=== PATIENT | female | born 1995 | race Caucasian/White ===

== ENCOUNTER 2018-12-11 07:37 | Day surgery (SDC) | payer OTHER, MEDICAID ==
[~2018-12-11] VITALS: Ht 157.5 cm; Wt 53.5 kg
[~2018-12-11 07:37] MED LIST: PRILOSEC 20MG20 MG PO; ULTRAM 50MG TAB50 MG PO; ZOFRAN8 MG PO
[2018-12-11] MEDS ORDERED: MS CONTIN 330 MG/TAB PO (08:18)
[2018-12-11 08:32] VITALS: BP 128/95; PULSE 106; TEMP 97.3
[2018-12-11 10:37] VITALS: TEMP 98.4
[2018-12-11 10:45] VITALS: BP 114/74; PULSE 101
--- NOTE | 2018-12-11 10:45 | NUR ---
Patient returns to room 6 per cart and is awake and alert. Temp 98.1 and room air sats 96%. IV infusing via port a catheter. Denies pain or nausea. Dressing clean and dry on the right nephrostomy site. Mother in room. Given muffin and juice.
[2018-12-11 11:00] VITALS: BP 113/79; PULSE 97
--- NOTE | 2018-12-11 11:00 | NUR ---
Patient assisted up to the bathroom and tolerates activity well. IV converted to INT.
--- NOTE | 2018-12-11 11:05 | NUR ---
Patient dresses self and gait is steady.
[2018-12-11 11:15] VITALS: BP 122/86; PULSE 112
--- NOTE | 2018-12-11 11:15 | NUR ---
Dressing remains clean and dry covering the right nephrostomy tube site. Eating pancakes and drinking juice.
--- NOTE | 2018-12-11 11:30 | NUR ---
Port a catheter deaccessed and site covered with bandaid. Given dismissal instructions and instructed that Dr. Andrew's office will call next week with follow up appointment date and time. Instructed to resume normal medications and may take Tylenol for pain as needed.
--- NOTE | 2018-12-11 11:38 | NUR ---
Dismissal instructions signed and patient dismissed to home per private vehicle driven by mother. Taken to the front door per wheelchair and assisted into vehicle.
== END 2018-12-11 11:38 | disposition home or self-care (01) ==
LOC: SDCO 07:37
DX: N13.1 Hydronephrosis with ureteral stricture, not elsewhere classified (principal); C22.0 Liver cell carcinoma; C79.19 Secondary malignant neoplasm of other urinary organs; Z79.899 Other long term (current) drug therapy; F41.9 Anxiety disorder, unspecified; F32.9 Major depressive disorder, single episode, unspecified; F17.210 Nicotine dependence, cigarettes, uncomplicated
CPT/HCPCS: J0690; J1170; J1644; J2250; J2405; J2704; J3010; J7120; Q9967

== ENCOUNTER 2019-03-17 18:35 | Emergency (ER) | payer OTHER, MEDICAID ==
[~2019-03-17] VITALS: Ht 157.5 cm; Wt 54.8 kg
[~2019-03-17 18:35] MED LIST changes: +MS CONTIN 330 MG/TAB PO
[2019-03-17 18:44] VITALS: TEMP 98.4
[2019-03-17] MEDS ORDERED: ATIVAN 1MG T1 MG/TAB PO (19:05)
[2019-03-17] MEDS ORDERED: REMERON 15M15 MG/TA1 PO (19:06)
[2019-03-17] MEDS ORDERED: DECADRON 1MG TAB1 MG PO (19:07)
[2019-03-17] MEDS ORDERED: TRANSDERM-0.5 MG/21 TOP (19:07)
[2019-03-17] MEDS ORDERED: FENTANYL 100MCG TOP (19:08)
[2019-03-17] MEDS ORDERED: DILAUDID8 M1 PO (19:09)
[2019-03-17] MEDS ORDERED: COMPAZINE 110 MG/TAB PO (19:09)
[2019-03-17] MEDS ORDERED: WOMEN'S LAXATIVE5 MG PO (19:10)
[2019-03-17] MEDS ORDERED: MAALOX ADVANCE148 ML (19:10)
[2019-03-17] MEDS ORDERED: ENULOSE10 GM/151 PO (19:11)
[2019-03-17] MEDS ORDERED: MIRALAX PA17 GM/Dose PO (19:12)
[2019-03-17] MEDS ORDERED: MAGCITRATE PO (19:12)
[2019-03-17] MEDS ORDERED: SORBITOL PO (19:13)
[2019-03-17] MEDS ORDERED: FLOMAX 0.40.4 MG/CAP PO (19:14)
[2019-03-17] MEDS ORDERED: DESYREL 50MG50 MG PO (19:14)
[2019-03-17] MEDS ORDERED: DITROPAN 5MG TAB5 MG PO (19:15)
[2019-03-17] MEDS ORDERED: SENNA-S 50 MG-81 TAB PO (19:15)
[2019-03-17] MEDS ORDERED: MACRODANTIN100 PO (19:34)
[2019-03-17 19:40] LABS: BASO % 0.5 % (0.0-2.0); EOS # 0.1 (0.0-0.7); EOS % 0.9 % (0-4.0); GRAN # 4.5 (1.4-6.5); GRAN % 53.4 % (42.2-75.2); LYMPH # 2.6 (1.2-3.4); LYMPH % 30.5 % (20.0-51.0); MEAN CELL VOLUME 80 fl (80.0-100.0); MEAN CORPUSCULAR HGB CONC 29 g/dl (33.0-37.0); MEAN PLATELET VOLUME 8.8 fl (7.4-10.4); MONO % 12.1 % (1.7-9.3); PLATELET COUNT 352 K/mm3 (130-400); RED BLOOD COUNT 4.03 M/mm3 (4.10-5.30); REDCELL DISTRIBUTION WIDTH-CV 20.4 % (11.5-14.5)
[2019-03-17 19:47] LABS: HEMATOCRIT 32.3 % (37.0-47.0); HEMOGLOBIN 9.4 g/dl (12.5-16.0); MEAN CORPUSCULAR HEMOGLOBIN 23 pg (27.0-31.0)
[2019-03-17 19:49] LABS: ALBUMIN 3.6 gm/dL (3.5-5.0); BILIRUBIN,TOTAL 4.8 mg/dL (0.0-1.0); C-REACTIVE PROTEIN 2.6 mg/dL (0.0-0.9); CALCIUM 9.7 mg/dL (8.4-10.2); CREATININE, serum 0.57 (0.52-1.25); MAGNESIUM 1.8 mg/dL (1.6-2.3); POTASSIUM 3.6 mmol/L (3.4-5.0); TOTAL PROTEIN 8.2 gm/dL (6.4-8.2)
[2019-03-17 20:36] LABS: INR 1.2 (0.8-3.0); PROTHROMBIN TIME 14.4 SECONDS (9.7-12.8)
[2019-03-17 20:38] LABS: PARTIAL THROMBOPLASTIN TIME 28.4 SECONDS (26.0-37.0)
[2019-03-17 20:40] LABS: COLLECTION METHOD CLEAN CATCH
[2019-03-17 20:52] LABS: MUCOUS Present /lpf; PH 7 (5-8); SQUAMOUS EPITHELIAL 0-2 /hpf; URINE APPEARANCE Hazy; URINE BACTERIA None Seen /hpf; URINE BILIRUBIN Positive (NEGATIVE); URINE BLOOD 3+ (NEGATIVE); URINE COLOR Amber; URINE GLUCOSE Negative (NEGATIVE); URINE KETONE Negative (NEGATIVE); URINE LEUKOCYTE ESTERASE 2+ (NEGATIVE); URINE NITRATE Negative (NEGATIVE); URINE PROTEIN(semi-quant) 2+ (NEGATIVE); URINE RBC >50 /hpf; URINE UROBILINOGEN >=4.0 mg/dL (NEGATIVE)
[2019-03-17 22:30] VITALS: BP 124/72; PULSE 104
== END 2019-03-17 22:55 | disposition short-term general hospital (02) ==
LOC: COL.ER 18:35
PROVIDERS: Emergency Medicine
DX: C22.0 Liver cell carcinoma (principal); C79.9 Secondary malignant neoplasm of unspecified site
CPT/HCPCS: A4216; J0696; J1170; J2405; J2543; J7030; Q9967

== ENCOUNTER 2019-04-09 13:23 | Inpatient (IN) | payer OTHER, MEDICAID ==
[~2019-04-09] VITALS: Ht 157.5 cm; Wt 54.2 kg
[~2019-04-09 13:23] MED LIST changes: +ATIVAN 1MG T1 MG/TAB PO; +COMPAZINE 110 MG/TAB PO; +DECADRON 1MG TAB1 MG PO; +DESYREL 50MG50 MG PO; +DILAUDID8 M1 PO; +DITROPAN 5MG TAB5 MG PO; +ENULOSE10 GM/151 PO; +FENTANYL 100MCG TOP; +FLOMAX 0.40.4 MG/CAP PO; +MAALOX ADVANCE148 ML; +MACRODANTIN100 PO; +MAGCITRATE PO; +MIRALAX PA17 GM/Dose PO; +REMERON 15M15 MG/TA1 PO; +SENNA-S 50 MG-81 TAB PO; +SORBITOL PO; +TRANSDERM-0.5 MG/21 TOP; +WOMEN'S LAXATIVE5 MG PO
[2019-04-09 14:15] LABS: MEAN CELL VOLUME 80 fl (80.0-100.0); MEAN CORPUSCULAR HGB CONC 28 g/dl (33.0-37.0); MEAN PLATELET VOLUME 8.4 fl (7.4-10.4); PLATELET COUNT 427 K/mm3 (130-400); RED BLOOD COUNT 3.61 M/mm3 (4.10-5.30); REDCELL DISTRIBUTION WIDTH-CV 18.5 % (11.5-14.5)
[2019-04-09 14:19] LABS: HEMATOCRIT 28.9 % (37.0-47.0); HEMOGLOBIN 8.2 g/dl (12.5-16.0); MEAN CORPUSCULAR HEMOGLOBIN 23 pg (27.0-31.0)
[2019-04-09 14:22] LABS: INR 1.3 (0.8-3.0); PROTHROMBIN TIME 15.8 SECONDS (9.7-12.8)
[2019-04-09 14:33] LABS: ALBUMIN 3.3 gm/dL (3.5-5.0); BILIRUBIN,TOTAL 0.5 mg/dL (0.0-1.0); C-REACTIVE PROTEIN 3.3 mg/dL (0.0-0.9); CALCIUM 9.6 mg/dL (8.4-10.2); CREATININE, serum 0.48 (0.52-1.25); POTASSIUM 3.5 mmol/L (3.4-5.0); TOTAL PROTEIN 7.5 gm/dL (6.4-8.2)
[2019-04-09 15:51] LABS: COLLECTION METHOD CLEAN CATCH
[2019-04-09 16:08] LABS: MICROCYTOSIS 1+; NEUTROPHILS 73 % (42.0-75.2)
[2019-04-09 16:09] LABS: LYMPHOCYTE 22 % (20.0-51.0); PLATELET ESTIMATE INCREASED (NORMAL)
[2019-04-09 16:10] LABS: ANISOCYTOSIS 2+; HYPOCHROMIA 2+
[2019-04-09 16:32] LABS: MUCOUS Present /lpf; PH 7 (5-8); SQUAMOUS EPITHELIAL None Seen /hpf; URINE APPEARANCE Cloudy; URINE BACTERIA Moderate /hpf; URINE BILIRUBIN Negative (NEGATIVE); URINE BLOOD 1+ (NEGATIVE); URINE COLOR Yellow; URINE GLUCOSE Negative (NEGATIVE); URINE KETONE Negative (NEGATIVE); URINE LEUKOCYTE ESTERASE 3+ (NEGATIVE); URINE NITRATE Negative (NEGATIVE); URINE PROTEIN(semi-quant) 1+ (NEGATIVE); URINE RBC 20-50 /hpf; URINE UROBILINOGEN >=4.0 mg/dL (NEGATIVE)
--- NOTE | 2019-04-09 18:45 | NUR ---
Patient up to room 314, escorted via wheelchair, mom at bedside. Oriented to room. Denies needs at this time. Requesting pain medication. it is shift change. production shift supervisor nurse will be setting up RESERVE OFFICER. Call light within reach. Mom left for the evening.
--- NOTE | 2019-04-09 19:35 | NUR ---
Report given to TLYOR Rose., will be resuming cares.
[2019-04-09] MEDS ORDERED: ZOFRAN8 MG PO (23:05)
[2019-04-09] MEDS ORDERED: LEVSIN0.125 M1 PO (23:12)
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
[2019-04-09 23:50] VITALS: BP 127/89; PULSE 133; TEMP 102.6
[2019-04-09 23:54] VITALS: BP 127/89; PULSE 138; PULSE 18; TEMP 102.6
[2019-04-10] VITALS (9 sets, daily range): BP systolic 101–152; BP diastolic 64–96; PULSE 93–130; TEMP 98–99.8
[2019-04-10 01:56] LABS: MEAN CELL VOLUME 80 fl (80.0-100.0); MEAN CORPUSCULAR HGB CONC 28 g/dl (33.0-37.0); MEAN PLATELET VOLUME 8.5 fl (7.4-10.4); PLATELET COUNT 345 K/mm3 (130-400); RED BLOOD COUNT 3.31 M/mm3 (4.10-5.30); REDCELL DISTRIBUTION WIDTH-CV 18.7 % (11.5-14.5)
[2019-04-10 01:58] LABS: HEMATOCRIT 26.5 % (37.0-47.0); HEMOGLOBIN 7.5 g/dl (12.5-16.0); MEAN CORPUSCULAR HEMOGLOBIN 23 pg (27.0-31.0)
[2019-04-10 02:01] LABS: INR 1.5 (0.8-3.0); PROTHROMBIN TIME 18.2 SECONDS (9.7-12.8)
[2019-04-10 02:09] LABS: ALBUMIN 2.7 gm/dL (3.5-5.0); BILIRUBIN,TOTAL 0.7 mg/dL (0.0-1.0); CALCIUM 8.2 mg/dL (8.4-10.2); CREATININE, serum 0.59 (0.52-1.25); MAGNESIUM 1.4 mg/dL (1.6-2.3); POTASSIUM 3.1 mmol/L (3.4-5.0); TOTAL PROTEIN 6.1 gm/dL (6.4-8.2)
[2019-04-10 02:19] LABS: ANISOCYTOSIS 1+; BAND 11 % (0-10); EOSINOPHIL 1 % (0-4); LYMPHOCYTE 12 % (20.0-51.0); NEUTROPHILS 72 % (42.0-75.2); PLATELET ESTIMATE NORMAL (NORMAL)
[2019-04-10 02:20] LABS: HYPOCHROMIA 2+
[2019-04-10 02:22] LABS: POLYCHROMASIA 1+
[2019-04-10 02:23] LABS: SCHISTOCYTES 1+
--- NOTE | 2019-04-10 03:00 | NUR ---
AT 2350 PT'S TEMP WAS 102.6 AND HEART RATE UP IN THE 140'S. CALLED CATA VAZQUEZ SEVERAL TIMES IN REFERENCE TO PT'S TEMP AND HEART RATE. WHEN PT GETS UP TO GO TO THE BATHROOM, PT'S HEART RATE GOES UP INTO THE 160S. ALSO, CATA VAZQUEZ CAME IN TO SEE PT AFTER PT'S HEART RATE WAS IN THE 160s. RECEIVED ORDERS FOR MOTRIN 400MG PO FOR TEMP, AND BOLUS OF 1L OF NORMAL SALINE. ALSO, CATA AVZQUEZ ORDER TO HAVE LABS COME UP AND DO 0500 LABS NOW. LAB CAME UP RIGHT AWAY. PT GOT UP BY HERSELF WITHOUT ASKING FOR HELP AND HER HEART RATE WENT BACK INTO THE 160s AGAIN, CALL CATA VAZQUEZ AND SHE ADVISED THAT THE PT USING THE BEDSIDE COMMODE. ADVISED CATA VAZQUEZ ALREADY PUT BEDSIDE COMMODE NEXT TO BED AND ADVISED PT TO CALL BEFORE GETTING UP AND TO USE THE BEDSIDE COMMODE. PT STATED, "OKAY." ALSO, ASKED PT ABOUT PAIN. PT HAS NOT HAD MUCH IMPROVEMENT WITH PAIN. PAIN IS ABOUT 5/10. OFFERED TO GIVE HER A BOLUS OF THE DILUADID; AND PT DECLINED. ONCE PT LAYING DOWN RESTING HR BACK DOWN TO 119. PT HAS NO NEEDS AT THIS TIME, CALL LIGHT WITHIN REACH.
--- NOTE | 2019-04-10 04:25 | NUR ---
PT GOT BACK UP TO USE THE BEDSIDE COMMODE AND PT'S HEART RATE WENT IN THE 140s. ASSISTED PT BACK TO BED AND DID A SET OF VITAL SIGNS AND PT'S HEART RATE WENT DOWN TO 108. CALLED CATA VAZQUEZ AND ADVISED HER WHAT HAPPENED. NO NEW ORDERS. PT RESTING IN BED WITH CALL LIGHT WITHIN REACH AND DIGITAL MARKETING LEAD BUTTON IN REACH. NO NEEDS AT THIS TIME.
--- NOTE | 2019-04-10 07:30 | NUR ---
PT HAS BEEN RESTING/SLEEPING IN BED WITH NO S/S OF PAIN OR DISCOMFORT NOTED. RESP EVEN AND UNLABORED. PT USED LIGHT OIL OPERATOR PUMP 7X SINCE 2232 TO 634 AND 2MG OF DILUADID. PT'S HEART HAS BEEN IN LOWER 100S SINCE NOT GETTING UP AND SLEEPING/RESTING. CALL LIGHT WITHIN REACH.
--- NOTE | 2019-04-10 09:07 | NUR ---
SW attempted to meet with the pt; the pt was deeply sleeping. SW will attempt at a later time.
--- NOTE | 2019-04-10 13:45 | NUR ---
Patient has rested in bed with eyes closed most of morning. Did become nauseated over the past hour and a half. Was administered available PRN medications without relief. Did speak with hospitalist and after reviewing available medicaitons he stated that was all that could be given to patient at this time. This was explained to patient, she did lay on side with eyes closed. Currently some nausea relief has been noticed if patient is still.
--- NOTE | 2019-04-10 13:59 | NUR ---
Chaaplain offered to pray but nothing needed at this time.
--- NOTE | 2019-04-10 14:17 | NUR ---
AGUSTIN met with the patient to discuss a discharge plan. The pt lives in [place] with her parents. The pt does not have any DME and reports independence with ADLs. The pt's PCP is Dr. Hicks and the receives her medications from [facility] in [place]. The pt reports no difficulties obtaining her medications. The pt does not have advanced directives in the EMR and was not interested in obtaining a DPOA-HC form. The pt plans to return home upon discharge. There are no additional needs at this time.
--- NOTE | 2019-04-10 17:57 | NUR ---
Patient is resting in bed with eyes closed on left side. Opens eyes to voice. Call light and personal items are within reach.
--- NOTE | 2019-04-10 18:53 | NUR ---
Patient declined lovenox injection today stating she pefers not to receive them and they are uncomfortable.
--- NOTE | 2019-04-10 20:00 | NUR ---
PT HAS N/V AND RESTING IN BED. GAVE ATIVAN TO HELP WITH ANXIETY. CALL LIGHT WITHIN REACH.
--- NOTE | 2019-04-10 22:22 | NUR ---
PT HAS N/V. PT DID GET UP TO USE THE BEDSIDE COMMODE AND HEART RATE ELEVATED AND THEN SHE STARTED TO VOMIT. PT WAS GIVEN AN ATIVAN AND IT SEEMED ONLY TO HELP FOR A SHORT TIME. PT'S TEMP WAS 99.8, GAVE MOTRINE FOR PAIN AND TEMP. PT RESTING IN BED AT THIS TIME, WITH HOB ELEVATED TO 15 DEGREE ANGLE. CALL LIGHT WITHIN REACH.
--- NOTE | 2019-04-10 22:30 | NUR ---
CALLED LOLLY VAZQUEZ IN REFERENCE TO PT'S NAUSEA AND VOMITING AND ALSO PT'S REQUEST NOT TO HAVE THE HELP DESK COORDINATOR PUMP, BUT TO JUST HAVE IV PAIN MEDICATIONS FOR HER PAIN. PT DOES NOT LIKE THAT SHE HAS TO WEAR THE NASAL CANULA FOR THE HELP DESK COORDINATOR PUMP. LOLLY VAZQUEZ DISCONTINUED THE HELP DESK COORDINATOR PUMP AND PUT IN AN ORDER FOR DILAUDID FOR PAIN AND PHENERGAN 12.5 MG IV FOR NAUSEA AND VOMITING.
[2019-04-11] VITALS (7 sets, daily range): BP systolic 115–142; BP diastolic 82–97; PULSE 90–107; TEMP 98.4–99.5
--- NOTE | 2019-04-11 02:19 | NUR ---
PT HAS NOT HAD ANY VOMITING SINCE GIVEN PHENERGAN. PT HAS BEEN RESTING SLEEPING AND ONLY ASKED FOR PAIN MEDICATION ONCE SINCE OFF GRAVEL WEIGHER PUMP. PT'S RESP EVEN AND UNLABORED AND NO S/S OF PAIN OR DISCOMFORT NOTED. CALL LIGHT WITHIN REACH.
--- NOTE | 2019-04-11 03:18 | NUR ---
PT HAD C/O POTASSIUM BURNING, TURNED OFF IV PUMP RIGHT AWAY AND JUST PUT ON THE NORMAL SALINE. PT STILL FELT IT BURNING, CHANGED TUBING AND FLUSHED. PT STATED THAT IT FELT BETTER. PT DID NOT WANT IV POTASSIUM BECAUSE IT WAS HURTING HER. PT REQUEST TO TAKE PO POTASSIUM INSTEAD. CALLED LOLLY VAZQUEZ AND ADVISED WHAT PT'S REQUEST WAS AND WHY. LOLLY VAZQUEZ ADVISED TO STOP POTASSIUM AND WAIT FOR MORNING LABS TO SEE WHERE HER POTASSIUM LEVELS. PT RESTING AT THIS TIME. CALL LIGHT WITHIN REACH.
[2019-04-11 06:16] LABS: BASO % 0.3 % (0.0-2.0); EOS # 0.3 (0.0-0.7); EOS % 3.4 % (0-4.0); GRAN % 62.6 % (42.2-75.2); LYMPH # 1.9 (1.2-3.4); LYMPH % 19.6 % (20.0-51.0); MEAN CELL VOLUME 79 fl (80.0-100.0); MEAN CORPUSCULAR HGB CONC 29 g/dl (33.0-37.0); MONO # 1.2 (0.1-0.6); PLATELET COUNT 395 K/mm3 (130-400); RED BLOOD COUNT 3.15 M/mm3 (4.10-5.30); REDCELL DISTRIBUTION WIDTH-CV 18.7 % (11.5-14.5)
--- NOTE | 2019-04-11 06:18 | NUR ---
PT HAS BEEN RESTING/SLEEPING IN BED. PT HAS NO S/S OF PAIN OR DISCOMFORT AND CALL LIGHT WITHIN REACH.
[2019-04-11 06:22] LABS: HEMATOCRIT 24.8 % (37.0-47.0); HEMOGLOBIN 7.2 g/dl (12.5-16.0); MEAN CORPUSCULAR HEMOGLOBIN 23 pg (27.0-31.0)
[2019-04-11 06:32] LABS: CALCIUM 8.7 mg/dL (8.4-10.2); CREATININE, serum 0.5 (0.52-1.25); MAGNESIUM 1.8 mg/dL (1.6-2.3); PHOSPHOROUS 3.4 mg/dL (2.5-4.5); POTASSIUM 3.8 mmol/L (3.4-5.0)
--- NOTE | 2019-04-11 06:58 | NUR ---
SHOP HELPER PUMP USAGE SHOWED 23.5 MG USED.
--- NOTE | 2019-04-11 10:00 | NUR ---
THIS NURSE TOOK IN MORNING MEDS TO PATIENT. PT DIDNT TAKE AM MEDS, THIS NURSE LEFT THEM FOR PT, INSTRUCTED THAT THERE WAS NAUSEA MEDICATION IN THERE, THIS NURSE WILL CHECK BACK WITH PT AND IF PT DOESNT TAKE MEDS WILL DOCUMENT AGAINST THEM. PT HAD BEEN UP WALKING WITH PT THIS AM. DIETITION WAS IN TO SEE PATIENT THIS AM AFTER PT, PT REFUSED DIETITION TO DO ASSESMENT, WOKE UP AND STATED NO TO ANY QUESTION SHE ASKED PT. PT STATED NO TO GETTING ANY DIETARY SUPPLEMENTS. PT LAYING IN BED WITH EYES CLOSED.
--- NOTE | 2019-04-11 12:51 | NUR ---
PT DID TAKE AM MEDS AT THIS TIME.
--- NOTE | 2019-04-11 15:45 | NUR ---
PT HAS C/O "CHEST PAIN" THIS NURSE TOOK PT VITAL SIGNS AND DOCUMENTED, WNL. THIS NURSE HAD PT POINT TO AREA OF PAIN, AND DESCRIBE PAIN, IF IT RADIATES OR NOT. PT POINTED TO UPPER GASTRIC REGION, STATED IT FELT LIKE A SHARP PAIN THAT DOESN'T RADIATE, DOESNT COME AND GO EITHER, IS A CONSTANT PAIN. THIS NURSE ADMINISTERED IV ZOFRAN AND AN PO ATIVAN. PT HAD C/O SAME PAIN STILL THERE 15 MINS AFTER ZOFRAN AND ASKED FOR ANYTHING ELSE. THIS NURSE GOT A VERBAL ORDER FROM DR. TERRY TO GIVE 30ML MAALOX TO SEE IF THAT RELIEVES PAIN. WILL CONTINUE TO MONITOR PT.
--- NOTE | 2019-04-11 20:10 | NUR ---
Pt is resting with HOB elevated. Pt is very soft spoken with flat affect. Pt reports abdominal pain 6/10. Pt is also experiencing nausea and vomiting that increases her pain. Abdomen soft, rounded. BS+. Respirations even and unlabored. Lungs clear. No distress noted. Telemetry leads replaced and adjusted. Pt is SR/ST. Heart rhythm is regular. HR does increase with exertion/ambulation. Pt reports increased weakness since admission. Pt denies any needs except pain and nausea medication. Will continue to monitor.
--- NOTE | 2019-04-11 20:48 | NUR ---
Telemetry called due to patients HR being elevated up to 140. Pt is up to BSC. Once returned to bed HR decreases into normal limits. PRN pain medication given for sharp abdominal pain 04/05. PRN nausea medication also given. No further needs noted.
--- NOTE | 2019-04-11 23:10 | NUR ---
Telemetry called d/t patients HR being elevated. Pt is in bed but awake upon assessment. No distress noted and HR is normalized. Will continue to monitor.
[2019-04-12 00:33] VITALS: BP 112/78; PULSE 100; TEMP 98.3
--- NOTE | 2019-04-12 03:15 | NUR ---
Pt sleeping. No distress noted. Heart rate and rhythm are WNL. Will continue to monitor.
[2019-04-12 04:22] VITALS: BP 125/92; PULSE 103; TEMP 98.6
--- NOTE | 2019-04-12 05:30 | NUR ---
Pt sleeping this AM. No acute distress noted. Pt has slept a majority of the city wellness coordinator without complaint. No needs noted.
[2019-04-12 07:32] LABS: MEAN CELL VOLUME 79 fl (80.0-100.0); MEAN CORPUSCULAR HGB CONC 28 g/dl (33.0-37.0); MEAN PLATELET VOLUME 8.6 fl (7.4-10.4); PLATELET COUNT 349 K/mm3 (130-400); RED BLOOD COUNT 3.48 M/mm3 (4.10-5.30); REDCELL DISTRIBUTION WIDTH-CV 18.5 % (11.5-14.5)
[2019-04-12 07:35] LABS: HEMATOCRIT 27.6 % (37.0-47.0); HEMOGLOBIN 7.8 g/dl (12.5-16.0); MEAN CORPUSCULAR HEMOGLOBIN 22 pg (27.0-31.0)
[2019-04-12 07:44] LABS: CALCIUM 8.7 mg/dL (8.4-10.2); CREATININE, serum 0.53 (0.52-1.25); MAGNESIUM 1.7 mg/dL (1.6-2.3); PHOSPHOROUS 3.3 mg/dL (2.5-4.5); POTASSIUM 3.5 mmol/L (3.4-5.0)
[2019-04-12 08:04] VITALS: BP 116/78; PULSE 102; TEMP 98.3
[2019-04-12 09:08] LABS: BAND 6 % (0-10); EOSINOPHIL 3 % (0-4); LYMPHOCYTE 24 % (20.0-51.0); NEUTROPHILS 57 % (42.0-75.2)
[2019-04-12 09:09] LABS: HYPOCHROMIA 2+; PLATELET ESTIMATE NORMAL (NORMAL)
[2019-04-12 09:10] LABS: ANISOCYTOSIS 1+; MICROCYTOSIS 1+
[2019-04-12] MEDS ORDERED: DIFLUCAN 100MG100 MG PO (10:34)
--- NOTE | 2019-04-12 11:36 | NUR ---
SW attended clincal rounds. Patient will discharge home with her mother today.
--- NOTE | 2019-04-12 11:43 | NUR ---
Assessment completed, alert/oriented, vital signs stable, reports pain/ Nausea have improved, some yeast in UA/ started Diflucan, plans for home now that she is feeling a little better, she is agreeable with plan, denies needs
--- NOTE | 2019-04-12 14:04 | NUR ---
Initial visit; Patient appeared not interested in Spiritual Care but did tell Schedule Supervisor she is going home today and faintly smiled when Schedule Supervisor commented on her xochitl name. Schedule Supervisor reiterated that she is available to listen.
--- NOTE | 2019-04-12 14:27 | NUR ---
discharge instructions reviewed with the patient, instructed to follow up with PCP as we have scheduled, instructed to finish course of Diflucan for yeast infection, IV removed, she is leaving with her family, I will escort her out the door
--- NOTE | 2019-04-12 14:47 | NUR ---
Palliative care nurse met with the patient in room and spoke with her mother by phone. Mother was very open to suggestion of home health PT/OT but pt was equally resistant. Pt is very clear that she wants to go home. She really does not identify any clear goals beside going home. She denies needs. She does report being involved withi palliative care at [facility]. While support was offered, pt really showed little interest in any suggestions other than going home.
== END 2019-04-12 14:31 | disposition home or self-care (01) | DRG 872 ==
LOC: COL.ER 13:23 → MEDICAL 16:51
PROVIDERS: Hospitalist; Internal Medicine; Physician Assistant; ADMIT Family Medicine
DX: A41.9 Sepsis, unspecified organism (principal); N39.0 Urinary tract infection, site not specified; C22.0 Liver cell carcinoma; E46 Unspecified protein-calorie malnutrition; C78.6 Secondary malignant neoplasm of retroperitoneum and peritoneum; C77.2 Secondary and unspecified malignant neoplasm of intra-abdominal lymph nodes; G89.3 Neoplasm related pain (acute) (chronic); R53.81 Other malaise; R11.2 Nausea with vomiting, unspecified
CPT/HCPCS: OP; 99222-AI; 99232-AI; 99239; J1170; J1650; J2405; J2543; J2550; J3475; J3480; J7030; J8540; Q9967

== ENCOUNTER 2019-04-28 11:20 | Emergency (ER) | payer OTHER, MEDICAID ==
[~2019-04-28] VITALS: Ht 160 cm; Wt 49.5 kg
[~2019-04-28 11:20] MED LIST changes: +DIFLUCAN 100MG100 MG PO; +LEVSIN0.125 M1 PO
[2019-04-28 11:46] VITALS: TEMP 97.4
[2019-04-28 12:53] LABS: HEMATOCRIT 40.7 % (37.0-47.0); HEMOGLOBIN 12.4 g/dl (12.5-16.0); MEAN CELL VOLUME 78 fl (80.0-100.0); MEAN CORPUSCULAR HEMOGLOBIN 24 pg (27.0-31.0); MEAN CORPUSCULAR HGB CONC 31 g/dl (33.0-37.0); MEAN PLATELET VOLUME 8.6 fl (7.4-10.4); PLATELET COUNT 337 K/mm3 (130-400); RED BLOOD COUNT 5.21 M/mm3 (4.10-5.30); REDCELL DISTRIBUTION WIDTH-CV 19.2 % (11.5-14.5)
[2019-04-28 13:03] LABS: ALBUMIN 2.7 gm/dL (3.5-5.0); BILIRUBIN,TOTAL 0.7 mg/dL (0.0-1.0); CALCIUM 8.9 mg/dL (8.4-10.2); CREATININE, serum 0.48 (0.52-1.25)
[2019-04-28 13:04] LABS: POTASSIUM 2.8 mmol/L (3.4-5.0)
[2019-04-28 13:11] LABS: INR 1.8 (0.8-3.0); PROTHROMBIN TIME 21.9 SECONDS (9.7-12.8)
[2019-04-28 13:14] LABS: C-REACTIVE PROTEIN 21.4 mg/dL (0.0-0.9)
[2019-04-28 13:17] LABS: ANISOCYTOSIS 1+; BAND 16 % (0-10); HYPOCHROMIA 1+; LYMPHOCYTE 1 % (20.0-51.0); MICROCYTOSIS 1+; NEUTROPHILS 79 % (42.0-75.2); PLATELET ESTIMATE NORMAL (NORMAL)
--- NOTE | 2019-04-28 15:15 | NUR ---
Patient's primary care nurse informed of PICC placement and may utilize catheter for IV medications. Packet of information will be set with patient to [facility]. Bedside information sent with patient.
[2019-04-28 15:59] LABS: COLLECTION METHOD CLEAN CATCH
[2019-04-28 16:22] LABS: MUCOUS Present /lpf; PH 5 (5-8); SQUAMOUS EPITHELIAL None Seen /hpf; URINE APPEARANCE Hazy; URINE BACTERIA None Seen /hpf; URINE BILIRUBIN Negative (NEGATIVE); URINE BLOOD 2+ (NEGATIVE); URINE COLOR Yellow; URINE GLUCOSE Negative (NEGATIVE); URINE KETONE 1+ (NEGATIVE); URINE LEUKOCYTE ESTERASE 3+ (NEGATIVE); URINE NITRATE Negative (NEGATIVE); URINE PROTEIN(semi-quant) 1+ (NEGATIVE); URINE RBC 20-50 /hpf
[2019-04-28 16:45] VITALS: BP 116/76; PULSE 147
== END 2019-04-28 16:50 | disposition short-term general hospital (02) ==
LOC: COL.ER 11:20
PROVIDERS: Emergency Medicine
DX: A41.9 Sepsis, unspecified organism (principal); A04.72 Enterocolitis due to Clostridium difficile, not specified as recurrent; C22.0 Liver cell carcinoma
CPT/HCPCS: C1751; C1892; J1170; J2543; J2930; J3010; J3370; J3480; J7030; J7050